=== PATIENT | female | born 2000 | race Caucasian/White ===

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

== ENCOUNTER → 2019-08-13 | Outpatient (CLI) | payer OTHER ==
--- NOTE | 2019-08-13 13:12 | USB ---
Reason for exam: clinical finding. History: Family history of breast cancer in mother at age 30. Physical Findings: Nurse Summary: 9 o'clock, 10 o'clock soft, movable 1cm (nurse dw). US Breast BILAT Right complete breast ultrasound includes all four quadrants, the retroareolar region and axilla. Finding demonstrates no cystic or solid lesion seen. Left complete breast ultrasound includes all four quadrants, the retroareolar region and axilla. Finding demonstrates no cystic or solid lesion seen. Dense tissue throughout both breasts. These results were verbally communicated with the patient and result sheet given to the patient on 08/13/19. ASSESSMENT: Negative, BI-RAD 1 RECOMMENDATION: Clinical management of both breasts. High risk screening 10 years prior to mothers breast cancer diagnosis.
== END | disposition home or self-care (01) ==
LOC: RADUSWWP 10:15
PROVIDERS: ATTEND Pediatrics
DX: N60.01 Solitary cyst of right breast (principal); N60.02 Solitary cyst of left breast; Z15.01 Genetic susceptibility to malignant neoplasm of breast

== ENCOUNTER → 2021-03-29 | Outpatient (CLI) | payer OTHER ==
--- NOTE | 2021-04-04 11:48 | MM ---
Reason for exam: clinical finding. Baseline mammogram. History: Patient is nulliparous. Family history of breast cancer in mother at age 30 and breast cancer in grandmother. Taking hormonal contraceptives for 4 years. Physical Findings: Nurse did not find any significant physical abnormalities on exam. MG Diagnostic Mammo w CAD PINA Bilateral CC and MLO view(s) were taken. The breast tissue is heterogeneously dense. This may lower the sensitivity of mammography. Focal asymmetry left MLO anterior, not evident on CC. These results were verbally communicated with the patient and result sheet given to the patient on 03/29/21. ASSESSMENT: Probably benign, BI-RAD 3 RECOMMENDATION: Follow-up diagnostic mammogram of the left breast in 6 months. Consider breast MRI. Manage on a clinical basis with regard to generalized breast tenderness. Ultrasound can be performed.
== END | disposition home or self-care (01) ==
LOC: RADMAMWWP 08:03
PROVIDERS: ATTEND Surgery
DX: R92.2 Inconclusive mammogram (principal); Z80.3 Family history of malignant neoplasm of breast; Z79.3 Long term (current) use of hormonal contraceptives
CPT/HCPCS: 77066

== ENCOUNTER → 2021-03-30 | Outpatient (CLI) | payer OTHER ==
[2021-03-30 16:17] VITALS: BP 135/82; PULSE 106; RESP 16; TEMP 98.2
--- NOTE | 2021-03-30 16:56 | P.GSHP ---
History of Present Illness H&P Date: 03/30/21 Chief Complaint: BRCA1 + Benny is a 20 year old white female status post bilateral mammogram on 84. The preliminary report is consider MRI, probably benign 6 month follow- up left breast evaluation. The patient's mother had breast cancer in her 30s, and was recently diagnosed with ovarian cancer. Her mother is BRCA1 positive. The patient also was tested and is BRCA1 positive. The patient has bilateral breast lumps in the area tender on a regular basis. The patient has not had any radiographic screening prior to yesterday. She does not have any nipple discharge or skin changes, although she states her left nipple is normally inverted. She does not complain of any trauma or infection of the breast. 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 ovarian cyst Medical History: HTN one kidney; 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 back pain Social History: smoke: none; spaced to secondhand smoke Alcohol: Rarely Marijuana: Negative - Constitutional Constitutional: Denies chills, Denies fever - EENT Eyes: denies blurred vision, denies pain Ears: deny: decreased hearing, tinnitus Ears, nose, mouth and throat: Reports headache, Denies sore throat - Breasts Breasts: bilateral: as per HPI - Cardiovascular Cardiovascular: Denies chest pain, Denies shortness of breath - Respiratory Respiratory: Denies cough, Denies 7 - Gastrointestinal Gastrointestinal: Reports as per HPI - Genitourinary (Female) Genitourinary: Reports as per HPI - Menstruation Menstruation: Reports as per HPI - Musculoskeletal Comment: back pain/ lower back Musculoskeletal: Reports as per HPI - Integumentary Integumentary: Denies pruritus, Denies rash - Neurological Neurological: Denies numbness, Denies weakness - Psychiatric Psychiatric: Reports anxiety, Denies depression - Endocrine Endocrine: Reports weight change, Denies fatigue - Hematologic/Lymphatic Comment: none - Allergic/Immunologic Comment: surgical glue allergy Allergic/Immunologic: Reports seasonal allergies Past Medical History Past Medical History: Hypertension Additional Past Medical History / Comment(s): grigsby-parkinson white syndrome, vaso-syncope, panic attacks History of Any Multi-Drug Resistant Organisms: None Reported Past Surgical History: Ablation, Hernia Repair Additional Past Surgical History / Comment(s): gastroschesis- surgery to repair, tumor from lower back removed, cyst on ovary Past Psychological History: Anxiety, Panic Disorder Smoking Status: Never smoker Past Alcohol Use History: None Reported Past Drug Use History: None Reported Medications and Allergies Home Medications Medication Instructions Recorded Confirmed Type ALPRAZolam [Xanax] 0.25 mg PO HS PRN 03/30/21 03/30/21 History Carvedilol [Coreg] 25 mg PO DAILY 03/30/21 03/30/21 History Etonogestrel [Nexplanon] 1 implant SQ [id number] 03/30/21 03/30/21 History Melatonin 10 mg PO HS 03/30/21 03/30/21 History Rizatriptan Benzoate [Rizatriptan] 10 mg PO DAILY PRN 03/30/21 03/30/21 History Allergies Allergy/AdvReac Type Severity Reaction Status Date / Time No Known Allergies Allergy Verified 03/30/21 16:10 Surgical - Exam Vital Signs Temp Pulse Resp BP Pulse Ox 98.2 F 106 H 16 135/82 100 03/30/21 16:13 03/30/21 16:13 03/30/21 16:13 03/30/21 16:13 03/30/21 16:13 BMI 32.8 - General no distress - Eyes normal ocular movement - ENT no hearing loss, no congestion - Neck no masses, trachea midline - Respiratory normal respiratory effort, clear to auscultation - Cardiovascular Rhythm: regular Heart Sounds: normal: S1, S2 - Abdomen Abdomen: soft, non tender, no guarding, no rigid, no rebound - Integumentary normal turgor - Neurologic no disoriented, no combative - Musculoskeletal normal gait - Psychiatric oriented to time, oriented to person, oriented to place, speech is normal, memory intact Breast Exam: BRA: 36D inspection: Bilateral grade 3 ptosis Palpation: Right breast: Multi-positional exam fibrocystic changes no dominant masses or nodules of concern Right axilla: No adenopathy of concern Left breast: Multi-positional exam fibrocystic changes no dominant masses or nodules of concern Left axilla: No adenopathy of concern Results Bilateral mammogram questionable changes in left breast Assessment and Plan Assessment: Impression: 1. Fibrocystic breast changes 2. Patient positive BRCA1 3. Positive family history of breast cancer 4. Patient with a congenital defects/gastroschisis, tumor lower back uncertain of the type Plan: 1. Consider bilateral breast MRI for close surveillance 2. Patient is going to consider changing method of control to one which do es not involve hormones We have discussed the risks of BRCA1 genetic mutation. A lifetime risk of breast cancer approaching 80%. Additionally increased risk for ovarian cancer. The patient is not interested in surgical prophylaxis of any type at this time. She is however interested in close surveillance. I would recommend bilateral breast MRI in follow-up after this is performed. We will most likely do alternating mammograms and MRIs. We have also discussed BCP risk. CC: Dr. Webb, Dr. Marks
== END ==
LOC: WWCWWP 09:01
PROVIDERS: ATTEND Surgery
DX: N60.19 Diffuse cystic mastopathy of unspecified breast (principal); Q79.3 Gastroschisis; D49.89 Neoplasm of unspecified behavior of other specified sites; F41.0 Panic disorder [episodic paroxysmal anxiety]; I10 Essential (primary) hypertension; Z85.43 Personal history of malignant neoplasm of ovary; Z80.3 Family history of malignant neoplasm of breast; Z79.899 Other long term (current) drug therapy

== ENCOUNTER → 2023-07-25 | Outpatient (CLI) | payer BC ==
--- NOTE | 2023-07-26 11:41 | MM ---
Reason for Exam: Screening (asymptomatic). Last mammogram was performed 2 year(s) and 3 month(s) ago. Patient History: Menarche at age 11. Patient has no children. Left ovary removed at age 16. Patient used Hormonal Contraceptives for 4 years. Maternal grandmother had breast cancer. Mother had breast cancer, age 30. Mother tested for BRCA2 outcome was positive. Last menstrual period: 07/11/2023 Prior Study Comparison: 03/29/2021 Bilateral Diagnostic Mammogram, [facility]. Tissue Density: The breast tissue is heterogeneously dense. This may lower the sensitivity of mammography. Findings: Analyzed By CAD. There is no suspicious group of microcalcifications or new suspicious mass. Overall Assessment: Negative, BI-RAD 1 Management: Screening Mammogram of both breasts in [address] [facility] will attempt to contact patient to return for supplemental views and ultrasound if indicated. Patient should continue monthly self-breast exams. A clinical breast exam by your physician is recommended on an annual basis. This exam should not preclude additional follow-up of suspicious palpable abnormalities. Note on Daylin scores and lifetime risk: 1. A Daylin score greater than 3% is considered moderate risk. If this is the case, consider specialist referral to assess eligibility for a risk reducing agent. 2. If overall lifetime risk for the development of breast cancer is 20% or higher, the patient may qualify for future screening with alternating mammogram and breast MRI. Electronically signed and approved by: Ernesto Berkowitz DO
== END | disposition home or self-care (01) ==
LOC: RADMAMWWP 13:45
PROVIDERS: ATTEND Obstetrics & Gynecology
DX: Z12.31 Encounter for screening mammogram for malignant neoplasm of breast (principal); Z80.3 Family history of malignant neoplasm of breast
CPT/HCPCS: 77067

== ENCOUNTER → 2023-07-25 | Outpatient (CLI) | payer BC ==
--- NOTE | 2023-07-26 22:05 | MR ---
EXAMINATION TYPE: MR pelvis wo/w con DATE OF EXAM: 07/25/2023 1:39 PM CLINICAL INDICATION:Female, 22 years old with history of R19.00 Z15.02 D48.0; PHH, Abnormal US. COMPARISON: TECHNIQUE: Triplane multisequence imaging was performed of the pelvis. IV Contrast: 8.5 cc Gadavist FINDINGS: Reproductive: Vagina: Unremarkable. Uterus: The uterus is anteverted in position. Uterus measures 8.5 x x cm. The endometrium and junctio nal zone are within normal limits. Multiple nabothian cysts are seen in the lower uterine segment. Ovaries: Follicular changes are noted to the ovaries. Reproductive: Prostate: Unremarkable. Seminal vesicle's: Unremarkable. Testes: Unremarkable. Bladder: Unremarkable. Bowel: Unremarkable as visualized. Peritoneum: A small amount of free fluid in the pelvis. Lymph nodes: No evidence of adenopathy. Vasculature: Unremarkable. Musculoskeletal: Bone marrow signal is within normal signal intensity. Abdominal wall/soft tissues: Unremarkable. IMPRESSION: 1. No evidence of suspicious pelvic mass. 2.
== END | disposition home or self-care (01) ==
LOC: RADMRIMAIN 12:03
PROVIDERS: ATTEND Obstetrics & Gynecology
DX: R19.00 Intra-abdominal and pelvic swelling, mass and lump, unspecified site (principal); D48.0 Neoplasm of uncertain behavior of bone and articular cartilage; Z15.02 Genetic susceptibility to malignant neoplasm of ovary
CPT/HCPCS: 72197; A9585